=== PATIENT | female | born 1950 | race Caucasian/White ===

== ENCOUNTER 2016-10-11 18:49 | Emergency (ER) | payer OTHER, MEDICARE ==
[~2016-10-11] VITALS: Ht 165.1 cm; Wt 52.6 kg
[2016-10-11] MEDS ORDERED: CELEXA20 M1 PO (19:04)
[2016-10-11] MEDS ORDERED: PROZAC10 M1 PO (19:04)
[2016-10-11] MEDS ORDERED: MULTI-DAY VITA1 EACH PO (19:05)
[2016-10-11] MEDS ORDERED: RESTORIL7.5 M1 PO (19:05)
[2016-10-11] MEDS ORDERED: TURMERIC500 M1 PO (19:06)
[2016-10-11] MEDS ORDERED: VITAMIN D2000 UNI1 PO (19:06)
[2016-10-11] MEDS ORDERED: GLUCOSAMINE-CH1 EAC5 PO (19:06)
[2016-10-11] MEDS ORDERED: CO Q-10200 MG PO (19:07)
--- NOTE | 2016-10-11 19:14 | ED SYNCOPE COMPLAINT ---
History of Present Illness General Chief Complaint: Syncope and Near-Syncope Stated Complaint: BIBA FOR EVAL OF SYNCOPE Source: patient, family, EMS Exam Limitations: no limitations Vital Signs & Intake/Output Vital Signs & Intake/Output Vital Signs Date Time Temp Pulse Resp B/P Pulse O2 O2 Flow FiO2 Ox Delivery Rate 10/11 1908 96.0 65 15 107/63 100 Room Air Room Air Allergies Coded Allergies: Penicillins (VOMITING, DYSPNEA 10/11/16) prednisone (HALLUCINATE 10/11/16) Reconcile Medications Cholecalciferol (Vitamin D3) (Vitamin D) (Unknown Strength) TABLET (Unknown Dose) PO DAILY SUPPLEMENT (Reported) Citalopram Hydrobromide (Celexa) 20 MG TABLET 1 TAB PO DAILY MENTAL HEALTH ( Reported) Fluoxetine HCl (Prozac) 10 MG CAPSULE 1 CAP PO DAILY MENTAL HEALTH (Reported) Glucosamine Sulf/Chondroitin A (Glucosamine-Chondroitin Cap) (Unknown Strength) CAPSULE (Unknown Dose) PO DAILY SUPPLEMENT (Reported) Multivitamin (Multi-Day Vitamins) 1 EACH TABLET 1 TAB PO DAILY SUPPLEMENT ( Reported) Temazepam (Restoril) (Unknown Strength) CAPSULE (Unknown Dose) PO QPM SLEEP ( Reported) Turmeric Root Extract (Turmeric) (Unknown Strength) CAPSULE (Unknown Dose) PO DAILY SUPPLEMENT (Reported) Ubidecarenone (Co Q-10) (Unknown Strength) CAPSULE (Unknown Dose) PO DAILY SUPPLEMENT (Reported) Triage Note: PT BIBA FROM [facility]/P SYNCOPAL EPISODE. PT WAS SITTING EATING DINNER WHEN SHE PASSED OUT. REPORTS THIS HAS HAPPENED BEFORE AND "IT WAS DEHYDRATION." PT ALSO COMPLAINS OF VOMITING X 1 ORANGE/PINK TINGED COLOR. PT'S VSS. Triage Nurses Notes Reviewed? yes Timing: single episode today Precipitating Factors: EATING DINNER Context: NO FOOD TODAY, WAS IN THE HOT TUB PRIOR TO DINNER Episode Description: SEE HPI Loss of Consciousness: prolonged (minutes) Associated Symptoms: DIZZINESS, LIGHTHEADED HPI: 66 year old female with history of hypothyroidism presents via EMS from a restaurant for syncopal episode while eating dinner. patient reports feeling lightheaded and seeing stars with some nausea and then passed out and her family. Quite a family member she vomited a few times and then vomited some red colored material. Patient denies having any anything red for dinner. She denies any chest pain, shortness breath or palpitations before or after the event. She does not recall passing out or vomiting afterwards. Currently she still feels a little bit nauseated. Patient and she is dehydrated as she had similar episodes with syncope few years ago. She states that this morning 20 with weights then cleaned out the garage with her brother for 3 hours. She didn 't eat lunch. She then sat in a hot tub for about 20 minutes to 30 minutes with her brother and didn't have any water after that. Past History Travel History Traveled to [place] past 21 day No Medical History Any Pertinent Medical History? see below for history Neurological: NONE EENT: NONE Cardiovascular: syncope Respiratory: NONE Gastrointestinal: NONE Hepatic: NONE Renal: NONE Musculoskeletal: NONE Psychiatric: anxiety, depression, insomnia Endocrine: HYPOTHYROIDISM Blood Disorders: NONE Cancer(s): NONE MED SPEC/Reproductive: NONE Surgical History Surgical History: non-contributory Psychosocial History What is your primary language Yi Tobacco Use: Never used ETOH Use: occasional use Illicit Drug Use: denies illicit drug use Family History Hx Contributory? No Review of Systems Review of Systems Constitutional: Reports: weakness. Denies: chills, fever. EENTM: Denies: blurred vision. Respiratory: Denies: cough, short of breath. Cardiovascular: Denies: chest pain, palpitations, peripheral edema. GI: Reports: no symptoms. Genitourinary: Reports: no symptoms. Musculoskeletal: Reports: no symptoms. Skin: Reports: no symptoms. Neurological/Psychological: Reports: see HPI (DIZZINESS). Denies: confusion, headache. All Other Systems: Reviewed and Negative Physical Exam Physical Exam General Appearance: alert, awake, mild distress, thin Head: atraumatic, normal appearance Eyes: Bilateral: normal appearance, PERRL, EOMI. Ears, Nose, Throat: normal pharynx, normal ENT inspection Neck: normal inspection, supple, full range of motion Respiratory: normal breath sounds, chest non-tender, no respiratory distress Cardiovascular: regular rate/rhythm Gastrointestinal: normal bowel sounds, soft, non-tender, BROWN GUIAC NEGATIVE STOOL Back: normal inspection, normal range of motion Extremities: normal inspection, normal capillary refill, normal range of motion, no edema Psychiatric: awake, alert, oriented x 3 Cranial Nerves: normal hearing, normal speech, PERRL Coordination/Gait: normal gait Motor/Sensory: no motor/sensory deficits Core Measures ACS in differential dx? Yes CVA/TIA Diagnosis: No Severe Sepsis Present: No Septic Shock Present: No Progress Differential Diagnosis: AMI, orthostatic syncope, acs, PE, UNSTABLE ANGINA Plan of Care: Orders Procedure Date/time Status EKG 10/11 UNK Active EKG, LABS, NS BOLUS ORDERED. REPEAT BOLUS ORDERED. PATIENT ANXIOUS FOR DISCHARGE HOME AT THIS TIME. SHE REPORTS THIS HAS HAPPENED IN THE PAST AND SHE OVERDID IT TODAY PRIOR TO HAVING DINNER WITH HER FAMILY. SHE STATES THAT SHE WILL FOLLOW UP WITH OUTPATIENT CARDIOLOGY. (PATRICIA ALMONTE,KARINA) Initial ED EKG: NSR Departure Departure Time of Disposition: 2118 Disposition: HOME OR SELF CARE Condition: Stable Clinical Impression Primary Impression: Syncope Additional Instructions: Follow up with the mine surveyor listed. Return to the ER for any changing or worsening symptoms. Departure Forms: Customer Survey General Discharge Information
[2016-10-11 19:52] LABS: ABSOLUTE BASOPHIL COUNT 0 /CUMM (0.0-0.2); ABSOLUTE EOSINOPHIL COUNT 0.2 /CUMM (0.0-0.7); ABSOLUTE GRANULOCYTE CT 5.9 /CUMM (1.4-6.5); ABSOLUTE LYMPH COUNT 1.4 /CUMM (1.2-3.4); ABSOLUTE MONOCYTE COUNT 0.6 /CUMM (0.10-0.60); BASOPHIL % 0.5 % (0.0-2.0); EOSINOPHIL % 2.2 % (0-5); GRANULOCYTE % 72.6 % (42.2-75.2); HEMATOCRIT 35.1 % (37-47); MEAN CORPUSCULAR HGB 31.8 PG (27.0-31.0); MEAN CORPUSCULAR VOLUME 93.3 FL (81.0-99.0); MEAN PLATELET VOLUME 7.9 FL (7.4-10.4); PLATELET COUNT 196 /CUMM (130-400); RBC DISTRIBUTION WIDTH 13.9 % (11.5-14.5); RED BLOOD CELL CT 3.76 /CUMM (4.20-5.40); WHITE BLOOD CELL COUNT 8.1 /CUMM (4.8-10.8)
[2016-10-11 21:37] VITALS: BP 118/70
== END 2016-10-11 21:44 ==
LOC: ERH 18:49
PROVIDERS: Emergency Medicine
DX: R55 Syncope and collapse (principal)
CPT/HCPCS: 93005; 93010